=== PATIENT | male | born 1970 | race Caucasian/White ===

== ENCOUNTER → 2023-10-03 13:13 | Outpatient (REF) | payer BC, SELFPAY | LOC: REG 13:13 | PROVIDERS: ATTENDING PHYSICIAN Chiropractor; FAMILY PHYSICIAN Internal Medicine | DX: M99.01 Segmental and somatic dysfunction of cervical region (principal) | CPT/HCPCS: 72052 ==

== ENCOUNTER → 2023-12-26 07:39 | Outpatient (REF) | payer BC, SELFPAY | LOC: RAD 07:39 | PROVIDERS: ATTENDING PHYSICIAN Chiropractor; FAMILY PHYSICIAN Internal Medicine | DX: M99.06 Segmental and somatic dysfunction of lower extremity (principal) | CPT/HCPCS: 73564 ==

== ENCOUNTER → 2024-02-04 06:30 | Outpatient (REF) | payer BC, SELFPAY | LOC: MRI 3T 06:30 | PROVIDERS: ATTENDING PHYSICIAN Chiropractor; FAMILY PHYSICIAN Internal Medicine | DX: M23.92 Unspecified internal derangement of left knee (principal); M99.06 Segmental and somatic dysfunction of lower extremity | CPT/HCPCS: 73721 ==

== ENCOUNTER 2025-03-02 07:18 | Emergency (ER) | payer BC, SELFPAY ==
[2025-03-02 07:31] VITALS: BP 168/93
--- NOTE | 2025-03-02 08:11 | ED.MUSCINJ ---
HPI-Injury
General
Chief Complaint: Musculo-Skeletal Complaint
Source: patient
Exam Limitations: none
Time Seen by Provider: 03/02/25 07:37
History of Present Illness-Injury
Initial Injury comments:
54-year-old otherwise healthy male presents complaining of left chest wall pain starting 3 days ago to 4 days ago. He slid headfirst during his softball game into home and had a little twinge in the left chest wall at that time however did not
think much of it. He continued his daily activities and was working and without any difficulty over the last 2 days however this morning he developed more pain to the left chest wall. Hurts to breathe he denies shortness of breath. He denies any
blood in the urine or abdominal pain. No other complaints
Past History
Social History
Tobacco: Non-smoker
Living: with family
Phy Exam
Physical Exam
Physical Exam:
General: Well-appearing male no acute respiratory distress
HEENT: Normocephalic atraumatic
Abdomen is soft nontender nondistended
Heart is regular rate and rhythm
Lungs with breath sounds all jason and clear
Musculoskeletal exam shows tenderness to the left lateral chest wall inferiorly without step-off deformity overlying ecchymosis or subcutaneous emphysema
Injury Course
Orders/Labs/Results
Orders:
Orders
03/02/25 07:33
Ribs, Left 3 View W/PA Chest CR [CR Ribs-left 3 Vw W/pa Chest] Urgent
Comment: hurts more to take a deep breath
Reason For Exam: slid in to [place]plate on tuesday having rib pain
MDM/Problems Addressed
Differential Diagnosis Includes:
Left chest wall discomfort following fall. Consider contusion versus muscular strain versus rib fracture or pneumothorax. Abdomen is benign. Do not suspect organic injury such as kidney or spleen injury.
Left rib series ordered
*Pulse Oximetry
SaO2: 98
Oxygen Mode of Delivery: Room air
Patient hypoxic: no
*Critical Care Note
Total Time (30-74mins, 75-104mins- exclusive of procedures): Not Applicable
Update Note
Update Note:
I personally visualized x-rays of the left ribs which are negative for acute fracture or pneumothorax. Exam not consistent with any abdominal process. Suspect chest wall strain or contusion versus occult rib fracture. Recommended
anti-inflammatory medications and avoidance of heavy lifting or twisting. Stable for discharge
ED Attending Note
-
Portions of this chart may have been created with voice recognition software.� Occasional wrong word or��sound alike� substitutions may have occurred due to the inherent limitations of voice recognition software.
Discharge Plan
Departure
Patient Disposition: Home (Routine Discharge)
Date of Disposition: 03/02/25
Time of Disposition: 08:15
Patient with high blood pressure during this ER visit?: No
Discharge Problem:
Strain of chest wall
Instructions: Muscle and Bone Pain (DC)
Prescriptions:
No Action
No Current Medications
0
Referrals:
Jean-Pierre Delvalle, [Family Provider, Internal Medicine]
Activity Restrictions/Additional Instructions:
Continue with ibuprofen or Tylenol for pain. Avoid heavy lifting or twisting activities. Turn if worse otherwise follow-up with your doctor
Interventions
Interventions:
*Risk Screen - Suicide Last Done: 03/02/25 07:31
*Neglect/Abuse Screening Last Done: 03/02/25 07:31
Discharge Date and Time
Print Language: [place]
[2025-03-02 08:25] VITALS: BP 156/84
== END 2025-03-02 08:26 | disposition home or self-care (01) ==
LOC: EMR 07:18
PROVIDERS: EMERGENCY PHYSICIAN Emergency Medicine; FAMILY PHYSICIAN Internal Medicine
DX: S29.011A Strain of muscle and tendon of front wall of thorax, initial encounter (principal); W19.XXXA Unspecified fall, initial encounter; Y93.64 Activity, baseball
CPT/HCPCS: 99283; 71101

== ENCOUNTER → 2025-06-03 12:11 | Outpatient (REF) | payer BC, SELFPAY | LOC: RAD 12:11 | PROVIDERS: ATTENDING PHYSICIAN Chiropractor; FAMILY PHYSICIAN Internal Medicine | DX: M99.06 Segmental and somatic dysfunction of lower extremity (principal) | CPT/HCPCS: 73630 ==